=== PATIENT | male | born 1980 | race Caucasian/White ===

== ENCOUNTER 2017-04-13 14:54 | Emergency (ER) | payer OTHER ==
[2017-04-13] MEDS ORDERED: OLANZapine ODT 5 MG TABLET TL ONE ×2 (15:20→15:23)
--- NOTE | 2017-04-13 15:23 | ED Physician Documentation ---
PD HPI MHE - Stated complaint Stated Complaint: MHE - Chief complaint Chief Complaint: MHE - History obtained from History obtained from: Patient - History of Present Illness Primary symptom: Other (He's been using multiple substances, most recently meth amphetamines up until a couple of days ago and has persistent paranoia and delusions without hallucination or suicidal ideation and request inpatient detox and medications to help with his symptoms and anxiety.) Review of Systems Ten Systems: 10 systems reviewed and negative Constitutional: denies: Fever, Chills Ears: denies: Loss of hearing, Ear pain Nose: denies: Rhinorrhea / runny nose, Congestion, Epistaxis GI: denies: Vomiting, Diarrhea PD PAST MEDICAL HISTORY - Past Medical History Past Medical History: Yes Psych: Anxiety Other Past Medical History: Drug Rehab for Spice - Past Surgical History Past Surgical History: Yes Ortho: Carpal Tunnel surgery, Spine surgery, Other - Present Medications Home Medications: Ambulatory Orders Medication Instructions Recorded Confirmed ALPRAZolam [Xanax] 0.25 mg PO Q6H PRN #10 tablet 01/01/16 OLANZapine ODT [Zyprexa Odt] 5 mg TL BID #4 tablet 04/13/17 - Allergies Allergies/Adverse Reactions: Allergies Allergy/AdvReac Type Severity Reaction Status Date / Time No Known Drug Allergies Allergy Verified 08/20/13 10:19 - Social History Does the pt smoke?: No Smoking Status: Never smoker Does the pt drink ETOH?: No Does the pt have substance abuse?: Yes Substance Use and Type: Meth, Prescription Pills, Other - Family History Family history: reports: Non contributory - Immunizations Immunizations are current?: Yes - POLST Patient has POLST: No PD ED PE NORMAL - Vitals Vital signs reviewed: Yes - General General: Alert and oriented X 3, Other (visibly anxious) - HEENT HEENT: PERRL, EOMI - Neck Neck: Supple, no meningeal sign, No bony TTP - Cardiac Cardiac: RRR, No murmur - Respiratory Respiratory: No respiratory distress, Clear bilaterally - Abdomen Abdomen: Soft, Non tender - Derm Derm: Normal color, Warm and dry - Extremities Extremities: No edema, No calf tenderness / cord - Neuro Neuro: Alert and oriented X 3, No motor deficit, No sensory deficit, Normal speech Results - Vitals Vitals: Vital Signs - 24 hr 04/13/17 04/13/17 14:59 15:31 Temperature 36.4 C L Heart Rate 74 74 Respiratory 14 19 Rate Blood Pressure 118/73 112/55 L O2 Saturation 100 99 Oxygen O2 Source Room air - Labs Labs: Laboratory Tests 04/13/17 04/13/17 04/13/17 15:40 15:42 15:42 WBC 9.3 RBC 4.81 Hgb 13.3 L Hct 40.3 L MCV 83.8 MCH 27.7 MCHC 33.0 RDW 13.0 Plt Count 295 MPV 7.1 L Neut # 6.7 H Lymph # 1.9 [place] # 0.4 Eos # 0.2 Baso # 0.1 Absolute Nucleated RBC 0.00 Nucleated RBCs 0.0 Sodium 140 Potassium 3.8 Chloride 105 Carbon Dioxide 27 Anion Gap 8.0 BUN 13 Creatinine 0.9 Estimated GFR (MDRD) 94 Glucose 111 H Calcium 9.5 Total Bilirubin 0.4 AST 23 ALT 42 Alkaline Phosphatase 60 Total Creatine Kinase 147 Total Protein 7.2 Albumin 3.8 Globulin 3.4 Albumin/Globulin Ratio 1.1 Lipase 21 L Urine Color YELLOW Urine Clarity CLEAR Urine pH 6.0 Ur Specific [place] 1.025 Urine Protein NEGATIVE Urine Glucose (UA) NEGATIVE Urine Ketones NEGATIVE Urine Occult Blood TRACE-LYSE Urine Nitrite NEGATIVE Urine Bilirubin NEGATIVE Urine Urobilinogen 0.2 (NORMAL) Ur Leukocyte Esterase NEGATIVE Ur Microscopic Review NOT INDICATED Urine Culture Comments NOT INDICATED Urine Opiates Screen NEGATIVE Ur Oxycodone Screen NEGATIVE Urine Methadone Screen NEGATIVE Ur Propoxyphene Screen NEGATIVE Ur Barbiturates Screen NEGATIVE Ur Tricyclics Screen NEGATIVE Ur Phencyclidine Scrn NEGATIVE Ur Amphetamine Screen POSITIVE H U Methamphetamines Scrn POSITIVE H U Benzodiazepines Scrn POSITIVE H Urine Cocaine Screen NEGATIVE U Cannabinoids Screen POSITIVE H Ethyl Alcohol < 5.0 PD MEDICAL DECISION MAKING - ED course ED course: 36-year-old gentleman with methamphetamine use presents with delusions and paranoia. Social work was not available to see him and it was offered to him that he could stay in the emergency department to tomorrow versus going home and calling in the morning and he opted for the latter. He did feel better after oral Zyprexa. Departure - Departure Disposition: 01 Home, Self Care Clinical Impression: Methamphetamine abuse, Paranoia Condition: Good Record reviewed to determine appropriate education?: Yes Instructions: ED Drug Abuse General Prescriptions: OLANZapine ODT [Zyprexa Odt] 5 mg TL BID #4 tablet Comments: Call a group social worker tomorrow at [phone] after 8 a.m. or return at that time.
[2017-04-13 15:50] LABS: BASOPHILS # (AUTO) 0.1 10^3/uL (0.0-0.1); BASOPHILS % (AUTO) 0.6 %; EOSINOPHILS # (AUTO) 0.2 10^3/uL (0.0-0.7); EOSINOPHILS % (AUTO) 1.7 %; HCT - HEMATOCRIT 40.3 % (42.0-52.0); HGB - HEMOGLOBIN 13.3 g/dL (14.0-18.0); LYMPHOCYTES # (AUTO) 1.9 10^3/uL (1.5-3.5); LYMPHOCYTES % (AUTO) 20.8 %; MEAN CORPUSCULAR HEMOGLOBIN 27.7 pg (27.0-31.0); MEAN CORPUSCULAR VOLUME 83.8 fL (80.0-94.0); MEAN PLATELET VOLUME 7.1 fL (7.4-11.4); MONOCYTES # (AUTO) 0.4 10^3/uL (0.0-1.0); MONOCYTES % (AUTO) 4.3 %; NEUTROPHILS # (AUTO) 6.7 10^3/uL (1.5-6.6); NEUTROPHILS % (AUTO) 72.6 %; RED BLOOD COUNT 4.81 10^6/uL (4.70-6.10); UNCORRECTED WHITE BLOOD COUNT 9.3 x10^3/uL; WHITE BLOOD COUNT 9.3 x10^3/uL (4.8-10.8)
[2017-04-13 15:51] LABS: BILIRUBIN,URINE NEGATIVE (NEGATIVE); UA CHARGE (STRIP ONLY) YES; UR CULTURE IF IND NOT INDICATED
[2017-04-13 16:07] LABS: ALBUMIN/GLOBULIN RATIO 1.1 (1.0-2.2); BILIRUBIN,TOTAL 0.4 mg/dL (0.2-1.0); BUN - BLOOD UREA NITROGEN 13 mg/dL (6-20); CALCIUM 9.5 mg/dL (8.5-10.3); CARBON DIOXIDE - CO2 27 mmol/L (21-32); CHLORIDE 105 mmol/L (101-111); CREATININE 0.9 mg/dL (0.6-1.2); GFR - MDRD 94 (>89); GLUCOSE 111 mg/dL (70-100); LIPASE 21 U/L (22-51); POTASSIUM 3.8 mmol/L (3.5-5.0); SODIUM 140 mmol/L (135-145); TOTAL PROTEIN 7.2 g/dL (6.7-8.2)
[2017-04-13 17:41] VITALS: BP 140/69
== END 2017-04-13 17:36 | disposition home or self-care (01) ==
LOC: ED 14:54
DX: F15.10 Other stimulant abuse, uncomplicated (principal); F22 Delusional disorders
CPT/HCPCS: 36415; 80053; 80306; 80320; 81003; 82550; 83690; 85025; 99283; 99284; A9270; 81001; 87086

== ENCOUNTER 2017-04-14 09:42 | Emergency (ER) | payer OTHER ==
--- NOTE | 2017-04-14 14:18 | ED Physician Documentation ---
PD HPI MHE - Stated complaint Stated Complaint: MHE - Chief complaint Chief Complaint: MHE - History obtained from History obtained from: Patient - History of Present Illness Primary symptom: Psychosis Contributing factors: Substance abuse - drugs Recently seen: Emergency Dept (last night) - Additional information Additional information: The patient is a 36-year-old male with history of methamphetamine abuse as well as prescription Adderall, who presents for voluntary treatment. He was seen here last night and because there was no executive secretary social welfare available at that time he chose to go home and then come back today when a executive secretary social welfare was available to help arrange for voluntary treatment. While here last night he was given Zyprexa, which reportedly helped with his symptoms. He last used methamphetamine 2 days ago. He reports vague delusions, describing seeing things that aren't real, and "stuff that doesn't make sense." He feels like people are constantly following him. His symptoms have been waxing and waning for the past month, but have become worse during the past week. He denies history of similar symptoms previously. Review of Systems Constitutional: denies: Fever Ears: denies: Tinnitus/ringing Nose: denies: Congestion Throat: denies: Sore throat Cardiac: denies: Chest pain / pressure Respiratory: denies: Dyspnea, Cough GI: denies: Abdominal Pain, Nausea, Vomiting : denies: Dysuria Skin: denies: Rash Musculoskeletal: denies: Back pain Neurologic: denies: Headache Psychiatric: reports: Delusions, Anxiety. denies: Suicidal, Homicidal PD PAST MEDICAL HISTORY - Past Medical History Cardiovascular: None Respiratory: None Neuro: None Endocrine/Autoimmune: None Psych: Anxiety - Past Surgical History Past Surgical History: Yes Ortho: Carpal Tunnel surgery, Spine surgery, Other - Present Medications Home Medications: Ambulatory Orders Medication Instructions Recorded Confirmed ALPRAZolam [Xanax] 0.25 mg PO Q6H PRN #10 tablet 01/01/16 OLANZapine ODT [Zyprexa Odt] 5 mg TL BID #4 tablet 04/13/17 Lorazepam 0.5 mg PO Q6HR PRN #20 tablet 04/14/17 - Allergies Allergies/Adverse Reactions: Allergies Allergy/AdvReac Type Severity Reaction Status Date / Time No Known Drug Allergies Allergy Verified 08/20/13 10:19 - Living Situation Living Situation: reports: With family - Social History Does the pt smoke?: No Smoking Status: Never smoker Does the pt drink ETOH?: No Does the pt have substance abuse?: Yes Substance Use and Type: Meth - Immunizations Immunizations are current?: Yes - POLST Patient has POLST: No PD ED PE NORMAL - Vitals Vital signs reviewed: Yes (normal) - General General: Alert and oriented X 3, Well developed/nourished, Other (moderately anxious) - HEENT HEENT: Atraumatic, EOMI, Pharynx benign - Neck Neck: No adenopathy, No JVD - Cardiac Cardiac: RRR, No murmur - Respiratory Respiratory: No respiratory distress, Clear bilaterally - Abdomen Abdomen: Soft, Non tender - Derm Derm: No rash - Extremities Extremities: No deformity, No tenderness to palpate - Neuro Neuro: Alert and oriented X 3, No motor deficit, Normal speech PD ED PE EXPANDED - Psych Psych: Anxious. No: Suicidal, Homicidal Results - Vitals Vitals: Vital Signs - 24 hr 04/14/17 14:26 Temperature 36.2 C L Heart Rate 71 Respiratory 18 Rate Blood Pressure 110/68 O2 Saturation 100 Oxygen O2 Source Room air - Labs Labs: Laboratory Tests 04/14/17 04/14/17 09:52 10:40 Urine Opiates Screen NEGATIVE Ur Oxycodone Screen NEGATIVE Urine Methadone Screen NEGATIVE Ur Propoxyphene Screen NEGATIVE Ur Barbiturates Screen NEGATIVE Ur Tricyclics Screen NEGATIVE Ur Phencyclidine Scrn NEGATIVE Ur Amphetamine Screen POSITIVE H U Methamphetamines Scrn POSITIVE H U Benzodiazepines Scrn POSITIVE H Urine Cocaine Screen NEGATIVE U Cannabinoids Screen POSITIVE H Ethyl Alcohol < 5.0 PD MEDICAL DECISION MAKING - ED course Complexity details: reviewed old records, reviewed results, re-evaluated patient , considered differential, d/w patient, d/w gis consultant ED course: The patient's presentation is significant for anxiety and vague psychosis related to methamphetamine abuse and subsequent recent discontinuation. He was evaluated by the dental assistant medical assistant who was able to arrange for voluntary treatment at respite bed in [place]. He is being discharged with prescription for lorazepam, which will be filled when he arrives at the respite home. I discussed with him potentially worrisome signs or symptoms that should prompt reevaluation in the emergency department. Departure - Departure Disposition: 01 Home, Self Care Clinical Impression: Methamphetamine abuse, Anxiety, Paranoia Condition: Stable Instructions: ED Stress React Prescriptions: Lorazepam 0.5 mg PO Q6HR PRN #20 tablet PRN Reason: Anxiety Comments: Refrain from methamphetamine or other drugs. You can use lorazepam as prescribed if needed for anxiety. Followup with your primary physician or counselor within one week. Call to schedule an appointment. Go directly to the respite house as arranged by dental assistant medical assistant. Return to the emergency department if feeling increasingly anxious out of control, or otherwise worsening symptoms. Discharge Date/Time: 04/14/17 14:26
[2017-04-14 14:26] VITALS: BP 110/68
== END 2017-04-14 14:26 | disposition home or self-care (01) ==
LOC: ED 09:42
DX: F15.10 Other stimulant abuse, uncomplicated (principal); F41.9 Anxiety disorder, unspecified; F22 Delusional disorders
CPT/HCPCS: 36415; 80306; 80320; 99283

== ENCOUNTER 2018-10-26 10:04 | Emergency (ER) | payer OTHER ==
[2018-10-26 10:25] VITALS: BP 129/82
--- NOTE | 2018-10-26 11:00 | ED Physician Documentation ---
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 [place] ship [place]. He has a tooth with a broken out filling and he has put some temporary filling material on it without improvement. He is having sensitivity to the tooth into his whole face inflammation and swollen lymph node which is tender. He was seen in the clinic and placed on penicillin. He is unable to sleep and not able to get in to see the dentist on the . Review of Systems Constitutional: denies: Fever Eyes: denies: Decreased vision Ears: denies: Ear pain Nose: denies: Rhinorrhea / runny nose, Congestion Throat: reports: Dental pain / toothache. denies: Sore throat Respiratory: denies: Cough GI: denies: Vomiting PD PAST MEDICAL HISTORY - Past Medical History Cardiovascular: None Respiratory: None Endocrine/Autoimmune: None Psych: Anxiety - Past Surgical History Past Surgical History: Yes Ortho: Carpal Tunnel surgery, Spine surgery, Other - Present Medications Home Medications: Ambulatory Orders Medication Instructions Recorded Confirmed ALPRAZolam [Xanax] 0.25 mg PO Q6H PRN #10 tablet 01/01/16 OLANZapine ODT [Zyprexa Odt] 5 mg TL BID #4 tablet 04/13/17 LORazepam [Lorazepam] 0.5 mg PO Q6HR PRN #20 tablet 04/14/17 Amoxicillin 875 mg PO BID #20 tablet 10/26/18 Hydrocodone/Acetaminophen 1 - 2 each PO Q6H PRN #14 tablet 10/26/18 [Hydrocodon-Acetaminophen 5-325] - Allergies Allergies/Adverse Reactions: Allergies Allergy/AdvReac Type Severity Reaction Status Date / Time No Known Drug Allergies Allergy Verified 10/26/18 10:16 - Social History Does the pt smoke?: No Smoking Status: Never smoker Does the pt drink ETOH?: No Does the pt have substance abuse?: Yes - Immunizations Immunizations are current?: Yes - POLST Patient has POLST: No PD ED PE NORMAL - Vitals Vital signs reviewed: Yes (hypertensive ) - General General: Alert and oriented X 3, No acute distress, Well developed/nourished - HEENT HEENT: Atraumatic, PERRL, EOMI, Pharynx benign, Other (both TM's are inflammed the left is worse than the right There is a tooth with a broken out filling on the lower left jaw and this is without swelling to the surrounding area. There is a tender swollen lymph node just below the jaw. ) - Neck Neck: Supple, no meningeal sign, No bony TTP - Respiratory Respiratory: No respiratory distress - Derm Derm: Normal color, Warm and dry, No rash - Extremities Extremities: No deformity, No edema - Neuro Neuro: Alert and oriented X 3, canteen operator 2-12 intact, No motor deficit, No sensory deficit, Normal speech Eye Opening: Spontaneous Motor: Obeys Commands Verbal: Oriented GCS Score: 15 - Psych Psych: Normal mood, Normal affect Results - Vitals Vitals: Vital Signs - 24 hr 10/26/18 10:10 Temperature 36.2 C L Heart Rate 68 Respiratory 18 Rate Blood Pressure 129/82 H O2 Saturation 98 Oxygen O2 Source Room air PD MEDICAL DECISION MAKING - ED course Complexity details: considered differential, d/w patient ED course: 37-year-old male with a bad tooth has been unable to sleep he has been on some penicillin states that this is been upsetting his stomach. He is switched to amoxicillin we will place him on some Vicodin as well. Departure - Departure Disposition: 01 Home, Self Care Clinical Impression: Pain, dental Condition: Stable Instructions: ED Tooth Pain Follow-Up: Your, doctor [Other] Prescriptions: Amoxicillin 875 mg PO BID #20 tablet Hydrocodone/Acetaminophen [Hydrocodon-Acetaminophen 5-325] 1 - 2 each PO Q6H PRN #14 tablet PRN Reason: pain
== END 2018-10-26 11:12 | disposition home or self-care (01) ==
LOC: ED 10:04
DX: K08.89 Other specified disorders of teeth and supporting structures (principal)
CPT/HCPCS: 99283

== ENCOUNTER 2020-05-29 12:16 | Emergency (ER) | payer OTHER ==
[2020-05-29 12:27] VITALS: BP 143/69
--- NOTE | 2020-05-29 12:49 | ED Physician Documentation ---
PD HPI HEENT - Stated complaint Stated Complaint: R EAR PX - Chief complaint Chief Complaint: Heent - History obtained from History obtained from: Patient - History of Present Illness Timing - onset: How many weeks ago (4) Timing - details: Gradual onset Improves: Medication Worsens: Swalllowing, Position Associated symptoms: No: Fever, Congestion, Rhinorrhea, Trismus, Facial swelling Similar symptoms before: Has not had sx before Recently seen: Emergency Dept - Additional information Additional information: 39-year-old male presents the emergency department for evaluation of persistent right ear pain. He was seen in this ED approximately 4 days ago for right ear pain and diagnosed with right acute otitis media. He was started on a course of cephalexin. However since being seen patient reports that the pain has worsened. He has worsening pain when swallows and especially when laying flat. He has had no fevers, denies any sinus congestion or pressure. He has had no ear drainage. Patient feels that the pain radiates to his upper teeth. He was seen by a dentist 2 weeks ago and has teeth that are in otherwise good repair He denies any history of recurrent ear infections. Did not require tympanostomy tubes as a child. He denies any recent travel to [facility] or swimming. Review of Systems Constitutional: denies: Fever, Chills Ears: reports: Ear pain. denies: Drainage/discharge, Tinnitus/ringing, Foreign body Nose: denies: Rhinorrhea / runny nose, Congestion Throat: reports: Dental pain / toothache. denies: Oral lesions / sores, Sore throat, Swollen tonsils, Reviewed and negative Cardiac: denies: Chest pain / pressure, Palpitations Respiratory: denies: Dyspnea GI: denies: Abdominal Pain, Abdominal Swelling, Nausea, Vomiting Skin: denies: Rash PD PAST MEDICAL HISTORY - Past Medical History Cardiovascular: None Respiratory: None Endocrine/Autoimmune: None Psych: Anxiety - Past Surgical History Past Surgical History: Yes Ortho: Carpal Tunnel surgery, Spine surgery, Other - Present Medications Home Medications: Ambulatory Orders Medication Instructions Recorded Confirmed Amoxicillin 875 mg PO BID #20 tablet 10/26/18 Cephalexin [Keflex] 500 mg PO TID #21 capsule 05/24/20 Amox/Clav 875/125 [Augmentin] 1 each PO Q12H #20 tablet 05/29/20 - Allergies Allergies/Adverse Reactions: Allergies Allergy/AdvReac Type Severity Reaction Status Date / Time No Known Drug Allergies Allergy Verified 05/29/20 12:27 - Social History Does the pt smoke?: No Smoking Status: Never smoker Does the pt drink ETOH?: No Does the pt have substance abuse?: Yes - Immunizations Immunizations are current?: Yes - POLST Patient has POLST: No PD ED PE NORMAL - General General: Alert and oriented X 3, No acute distress, Well developed/nourished - HEENT HEENT: PERRL, EOMI, Other (right eac erythematous withotu swelling or drainage. Right TM erythematous with milky effusion seen beyond the TM. DIVINA intact. Normal opening closing of the jaw. All teeth appear to be in good repain. No gum line swelling or fluctuance. no mastoid swellign or tenderness.) - Neck Neck: Supple, no meningeal sign. No: No adenopathy - Cardiac Cardiac: RRR, No murmur - Respiratory Respiratory: No respiratory distress - Abdomen Abdomen: Normal bowel sounds, Soft Results - Vitals Vitals: Vital Signs - 24 hr 05/29/20 12:24 Temperature 36.8 C Heart Rate 68 Respiratory 18 Rate Blood Pressure 143/69 H O2 Saturation 99 Oxygen O2 Source Room air PD MEDICAL DECISION MAKING - ED course Complexity details: reviewed results, d/w patient ED course: 39-year-old male presents to the emergency department with persistent right ear pain. Seen in this ED 4 days ago found to have right AOM. He was started on cephalexin but does not feel that the symptoms are improved pain is persistent when he swallows and especially when he lays supine in bed at night. - On exam he has an erythematous TM. There is no TM rupture. It appears that he has a persistent infection I will change his antibiotics to Augmentin. - His exam is not consistent with malignant otitis externa. His teeth do appear to be in good repair and no pain was elicited with palpation of the teeth themselves. He has no trismus. He has normal phonation and full range of motion of the neck. Exam is also NOT consistent with acute masoid process with lack of mastoid tenderness, swelling or erythema Departure - Departure Disposition: 01 Home, Self Care Clinical Impression: Otitis media Qualifiers: Otitis media type: suppurative Chronicity: acute Laterality: bilateral Recurrence: not specified as recurrent Spontaneous tympanic membrane rupture: without spontaneous rupture Qualified Code(s): H66.003 - Acute suppurative otitis media without spontaneous rupture of ear drum, bilateral Instructions: ED Otitis Media Serous Adult Prescriptions: Amox/Clav 875/125 [Augmentin] 1 each PO Q12H #20 tablet Comments: Phani it looks like you continue to have some fluid behind your right eardrum. Let us have you stop the Keflex and begin taking Augmentin as prescribed. I would expect improved symptoms within 24 to 48 hours. If your symptoms are not improving you may need to be seen by an ear nose throat doctor as recurrent infections in adults are relatively uncommon Return here if you have ear swelling, any fevers, any fainting episodes or drainage from the ear
== END 2020-05-29 13:00 | disposition home or self-care (01) ==
LOC: ED 12:16
DX: H66.003 Acute suppurative otitis media without spontaneous rupture of ear drum, bilateral (principal)
CPT/HCPCS: 99282; 99283

== ENCOUNTER 2021-01-25 16:53 | Outpatient (CLI) | payer OTHER | END 2021-01-25 16:54 | disposition home or self-care (01) | LOC: COV 16:53 | PROVIDERS: ATTEND Surgery | DX: Z01.812 Encounter for preprocedural laboratory examination (principal); D17.0 Benign lipomatous neoplasm of skin and subcutaneous tissue of head, face and neck; Z20.822 Contact with and (suspected) exposure to COVID-19 ==

== ENCOUNTER 2021-01-29 09:09 | Day surgery (SDC) | payer OTHER ==
[2021-01-29] MEDS ORDERED: LIDOCAINE 2%-EPI 1:100000 20 ML MDV ONE (09:50)
[2021-01-29] MEDS ORDERED: BUPIVACAINE 0.25% PF 30 ML VIAL ONE (09:50)
[2021-01-29] MEDS ORDERED: LACTATED RINGERS 1,000 ML IV ONE (10:02)
[2021-01-29] MEDS ORDERED: MIDAZOLAM 2 MG/2 ML VIAL ONE (10:05)
[2021-01-29] MEDS ORDERED: ROCURONIUM 50 MG/5 ML VIAL ONE (10:05)
[2021-01-29] MEDS ORDERED: fentaNYL 100 MCG/2 ML VIAL ONE (10:05)
[2021-01-29] MEDS ORDERED: LIDOCAINE-MPF 2% 5 ML VIAL ONE (10:05)
[2021-01-29] MEDS ORDERED: PROPOFOL 200 MG/20 ML VIAL IVP ONE (10:05)
[2021-01-29] MEDS ORDERED: BUPIVACAINE 0.25% PF 30 ML VIAL SUBQ ONE ×2 (10:12)
[2021-01-29] MEDS ORDERED: LIDOCAINE 2%-EPI 1:100000 20 ML MDV SUBQ ONE ×2 (10:13)
--- NOTE | 2021-01-29 10:18 | ANESTHESIA ---
Pre-Anesthesia VS, & Labs - Diagnosis lipoma right neck - Procedure excision lipoma right neck Vital Signs: Temp Pulse Resp BP Pulse Ox 36.4 C L 53 L 18 154/81 H 99 01/29/21 10:03 01/29/21 10:03 01/29/21 10:03 01/29/21 10:03 01/29/21 10:03 Height: 6 ft 2 in Weight (kg): 129.9 kg Body Mass Index: 36.7 BMI Classification: Obese - NPO >8 hours Home Medications and Allergies Home Medications: Ambulatory Orders Dextroamphetamine/Amphetamine [Adderall 20 mg Tablet] 30 mg PO BID PRN 01/22/21 Dextroamphetamine/Amphetamine [Adderall 20 mg Tablet] 30 mg PO BID PRN 01/22/21 Allergies/Adverse Reactions: Allergies Allergy/AdvReac Type Severity Reaction Status Date / Time avocado Allergy throat Verified 01/22/21 10:29 itching kiwi Allergy throat Verified 01/22/21 10:29 itching Anes History & Medical History - Anesthetic History Anesthesia Complications: reports: No previous complications - Medical History Cardiovascular: reports: None Pulmonary: reports: None Gastrointestinal: reports: None Urinary: reports: None Musculoskeletal: reports: None Endocrine/Autoimmune: reports: None Skin: reports: None Smoking Status: Never smoker History of Cancer?: No - Surgical History Orthopedic: reports: Carpal Tunnel surgery, Spine surgery, Other Exam General: Alert Mouth Opening: Greater than 4 Fingerbreadths Neck Mobility: Limited Mallampati classification: I Thyromental Distance: greater than 6 cm Respiratory: Lungs clear Cardiovascular: Regular rate Plan Anesthesia Type: General Consent for Procedure(s) Verified and Reviewed: Yes Code Status: Attempt Resuscitation ASA classification: 2-Mild systemic disease Is this case an emergency?: No
[2021-01-29] MEDS ORDERED: ONDANSETRON 4 MG/2 ML VIAL IVP PRN (10:23)
[2021-01-29] MEDS ORDERED: MORPHINE 2 MG/ML CARPUJECT IVP PRN (10:23)
[2021-01-29] MEDS ORDERED: METOCLOPRAMIDE 10 MG/2 ML VIAL IVP PRN (10:23)
[2021-01-29] MEDS ORDERED: ePHEDrine 50 MG/ML VIAL IVP PRN (10:23)
[2021-01-29] MEDS ORDERED: ATROPINE ABBOJECT 1 MG/10 ML SYRINGE IVP PRN (10:23)
[2021-01-29] MEDS ORDERED: fentaNYL 100 MCG/2 ML VIAL IVP PRN (10:23)
[2021-01-29] MEDS ORDERED: NALOXONE 0.4 MG/ML VIAL IVP PRN (10:23)
[2021-01-29] MEDS ORDERED: HYDROmorphone 0.5 MG/0.5 ML SYRINGE IVP PRN (10:23)
[2021-01-29] MEDS ORDERED: DEXAMETHASONE 4 MG/ML VIAL ONE (10:58)
[2021-01-29] MEDS ORDERED: ONDANSETRON 4 MG/2 ML VIAL ONE (10:58)
[2021-01-29] MEDS ORDERED: KETOROLAC 30 MG/ML VIAL ONE (10:58)
[2021-01-29] MEDS ORDERED: LACTATED RINGERS 1,000 ML IV SCH (11:00)
[2021-01-29] MEDS ORDERED: SUGAMMADEX 200 MG/2 ML VIAL IVP ONE (11:18)
--- NOTE | 2021-01-29 11:27 | OPERATIVE REPORT ---
Operative Report - General Procedure Date: 01/29/21 Planned Procedure: excision 6 cm right neck lipoma Pre-Op Diagnosis: neck lipoma Procedure Performed: excision 6 cm right neck lipoma Post Op Diagnosis: same - Procedure Note Primary Surgeon: luanne coughlin Anesthesia Technique: General ET tube, Local Pathology: benign, not sent Estimated Blood Loss (mL): 1 Drain/Tube Type: Other (none) Complications: none
[2021-01-29] MEDS ORDERED: LACTATED RINGERS 200 ML IV ONE (11:28)
[2021-01-29] MEDS ORDERED: oxyCODONE 5 MG TABLET PO PRN (11:28)
--- NOTE | 2021-01-29 12:35 | ANESTHESIA POST OP EVALUATION ---
Anesthesia Post Eval - Post Anesthesia Eval Vitals: Last Vital Signs Temp 36.2 C L 01/29/21 12:20 Pulse 44 L 01/29/21 12:20 Resp 20 01/29/21 12:20 BP 136/76 H 01/29/21 12:20 Pulse Ox 96 01/29/21 12:20 CV Function Including HR & BP: Stable Pain Control: Satisfactory Nausea & Vomiting: Negative Mental Status: Baseline Respiratory Status: Airway Patent Hydration Status: Satisfactory Anesthesia Complications: None
[2021-01-29 12:36] VITALS: BP 130/71
--- NOTE | 2021-01-29 13:14 | OPERATIVE REPORT ---
DATE OF SERVICE: 01/29/2021 Physician: Elpidio Rogers MD PREOPERATIVE DIAGNOSIS: A 6 cm right neck lipoma. POSTOPERATIVE DIAGNOSIS: A 6 cm right neck lipoma. PROCEDURE 1. Excision of right neck lipoma. 2. Intermediate repair 5 cm neck incision. SURGEON: Elpidio Rogers MD WAFER ABRADING MACHINE TENDER: None. ANESTHESIA 1. General endotracheal anesthesia. 2. Local anesthesia with Marcaine and lidocaine. COMPLICATIONS: None. ESTIMATED BLOOD LOSS: None. DRAINS: None. SPECIMEN: Clinically benign, not sent for pathology. INDICATIONS FOR PROCEDURE: The patient is a 40-year-old with a slowly growing right lateral neck mass, consistent with lipoma. It has become sizable and now creates pain and tenderness. He presents for excision. Risks discussed, alternatives discussed, all questions answered, and consent obtained. DETAILS OF PROCEDURE: The patient was properly identified, brought to the operating room, and placed in supine position. General endotracheal anesthesia was induced. He was then repositioned [id number] slightly and carefully padded. He was prepped and draped in a sterile fashion. Antibiotics were not indicated and given. Local anesthetic was given. The patient had a prior attempted excision or drainage in the office. An elliptical incision was made in the direction of Nicolasa's lines, cutting out the prior scar. Dissection proceeded with cutting current. The lipoma was removed in its entirety with gentle retraction and cutting current cautery. Hemostasis was ensured. The lipoma was superficial to the platysma. Subcutaneous tissue was reapproximated with interrupted 3-0 Vicryl. Buried interrupted subdermal 3-0 Vicryl sutures were then placed. The skin was closed with a running 4-0 Monocryl subcuticular suture. Steri-Strips and dressing were applied. He tolerated the procedure very well, was awakened and brought to recovery in good condition. TD: 01/29/2021 13:12 [facility]
== END 2021-01-29 09:10 | disposition home or self-care (01) ==
LOC: SDS 09:09
PROVIDERS: ATTEND Surgery
DX: D17.0 Benign lipomatous neoplasm of skin and subcutaneous tissue of head, face and neck (principal); E66.9 Obesity, unspecified; Z68.36 Body mass index [BMI] 36.0-36.9, adult
CPT/HCPCS: 11426; 12042; J7120

== ENCOUNTER 2022-05-18 12:46 | Emergency (ER) | payer OTHER ==
--- NOTE | 2022-05-18 13:34 | ED Physician Documentation ---
PD HPI BACK PAIN - Stated complaint Stated Complaint: BACK PX - Chief complaint Chief Complaint: Back Pain - History obtained from History obtained from: Patient - History of Present Illness Timing - onset: How many days ago (several) Timing - duration: Days Timing - details: Abrupt onset, Still present Location: Lower Quality: Pain, Spasm Associated symptoms: No: Fever, Weakness, Numbness, Incontinent of urine Improves with: Rest. No: Meds Worsened by: Movement, Lifting, Twisting Contributing factors: Lifting (The patient has to lift his brother who is injured and has leg weakness and improving slowly. The patient has to lift his brother in and out of vehicles. Onset of back pain when doing this a few days ago. Pain persists.) Similar symptoms before: Has not had sx before Recently seen: Not recently seen Review of Systems Constitutional: denies: Fever, Chills GI: denies: Abdominal Pain, Nausea, Vomiting, Diarrhea : denies: Dysuria, Frequency Skin: denies: Rash, Lesions Neurologic: denies: Focal weakness, Numbness PD PAST MEDICAL HISTORY - Past Medical History Cardiovascular: None Respiratory: None Endocrine/Autoimmune: None GI: None : None HEENT: None Psych: ADD/ADHD Musculoskeletal: None Derm: None - Past Surgical History Past Surgical History: Yes Ortho: Carpal Tunnel surgery, Spine surgery, Other - Present Medications Home Medications: Ambulatory Orders Medication Instructions Recorded Confirmed Dextroamphetamine/Amphetamine 30 mg PO BID PRN 01/22/21 01/22/21 [Adderall 20 mg Tablet] oxyCODONE/ACET 5/325 [Percocet 5 1 each PO Q6H PRN #12 tablet 01/29/21 mg/325 mg] Naproxen 500 mg PO BID #20 tab.sr 05/18/22 oxyCODONE [Roxicodone] 5 mg PO Q6H PRN #18 tablet 05/18/22 tiZANidine [Zanaflex] 4 mg PO Q8H PRN #25 tablet 05/18/22 - Allergies Allergies/Adverse Reactions: Allergies Allergy/AdvReac Type Severity Reaction Status Date / Time avocado Allergy throat Verified 01/22/21 10:29 itching kiwi Allergy throat Verified 01/22/21 10:29 itching - Social History Does the pt smoke?: No Smoking Status: Never smoker Does the pt drink ETOH?: No Does the pt have substance abuse?: Yes - Immunizations Immunizations are current?: Yes - POLST Patient has POLST: No PD ED PE NORMAL - Vitals Vital signs reviewed: Yes - General General: Alert and oriented X 3, Well developed/nourished, Other (He appears uncomfortable with guarded range of motion for the low back.) - Abdomen Abdomen: Soft, Non tender - Rectal Rectal: Deferred - Back Back: No CVA TTP, No spinal TTP, Other (Tenderness in the right paralumbar muscle without focal trigger point per se. No vertebral tenderness. No rash no shoulders.) - Derm Derm: Normal color, Warm and dry, No rash - Neuro Neuro: Alert and oriented X 3, No motor deficit, No sensory deficit, Other (normal patellar reflexes) Results - Vitals Vitals: Vital Signs - 24 hr 05/18/22 05/18/22 13:00 15:23 Temperature 37.2 C 36.9 C Heart Rate 70 50 L Respiratory 19 18 Rate Blood Pressure 132/78 H 124/76 O2 Saturation 98 95 Oxygen O2 Source Room air PD MEDICAL DECISION MAKING - ED course Complexity details: considered differential (Back pain onset after lifting. No red flags on history or physical. Can treat as muscle/myofascial back pain.), d/w patient Departure - Departure Disposition: 01 Home, Self Care Clinical Impression: Low back strain Qualifiers: Encounter type: initial encounter Qualified Code(s): S39.012A - Strain of muscle, fascia and tendon of lower back, initial encounter Condition: Stable Record reviewed to determine appropriate education?: Yes Instructions: ED Sprain Strain Lumbar Follow-Up: Ronaldo Schmitt DO [Primary Care Provider] - Prescriptions: Naproxen 500 mg PO BID #20 tab.sr oxyCODONE [Roxicodone] 5 mg PO Q6H PRN #18 tablet PRN Reason: Pain tiZANidine [Zanaflex] 4 mg PO Q8H PRN #25 tablet PRN Reason: Spasms Comments: Heat massage gentle stretching overall good for her back muscles. Consider chiropractic or other treatments if you are so inclined. We would typically treat this with anti-inflammatories and muscle relaxants and pain medicines along with heat stretching and massage and see if this improves over the next week or so. No heavy lifting or such over the next several days to week. Recheck if not improved well over the next several days and resolved by a week or so. I transmitted your prescriptions to [facility] pharmacy. I am prescribing a short course of narcotic pain medication for you. These are potentially dangerous and addictive medications that should be used carefully. These medications may constipate you. Take an ehlw-iao-oqkubkk stool softener such as docusate twice daily with plenty of water while taking these medications. If you go 24 hours without a bowel movement, take iniy-iwb-jrfbklb MiraLAX, per package instructions. Do not drink or drive while taking these medications. If you received narcotic or sedating medications while in the emergency departm ent do not drive for 24 hours. Store this medication in a safe, secure place and out of reach of children. It is a violation of federal law to give or sell this medication to another person or to use in a manner other than prescribed. The ED will not refill narcotic prescriptions, including prescriptions lost or stolen. You can dispose of unwanted medications at the [facility] or at several pharmacies such as [facility] Discharge Date/Time: 05/18/22 15:23
[2022-05-18] MEDS ORDERED: methocarbamoL 500 MG TABLET PO STA (14:12)
[2022-05-18] MEDS ORDERED: KETOROLAC 30 MG/ML VIAL IM STA (14:12)
[2022-05-18] MEDS ORDERED: HYDROmorphone 1 MG/ML CARPUJECT IM STA (14:12)
[2022-05-18] MEDS ORDERED: oxyCODONE 5 MG TABLET PO STA (15:10)
[2022-05-18 15:24] VITALS: BP 124/76
== END 2022-05-18 15:23 | disposition home or self-care (01) ==
LOC: ED 12:46
DX: S39.012A Strain of muscle, fascia and tendon of lower back, initial encounter (principal); X50.0XXA Overexertion from strenuous movement or load, initial encounter; Y93.F2 Activity, caregiving, lifting; Y92.810 Car as the place of occurrence of the external cause
CPT/HCPCS: 96372; 99282; 99283; A9270; J1170

== ENCOUNTER 2024-03-21 19:12 | Emergency (ER) | payer OTHER ==
--- NOTE | 2024-03-21 21:02 | ED Physician Documentation ---
PD HPI HEENT - Stated complaint Stated Complaint: RT EAR PX,DIZZY - Chief complaint Chief Complaint: Heent - History obtained from History obtained from: Patient - Additional information Additional information: The patient comes to the emergency department chief complaint of low right ear pain, jaw pain, and right teeth hurting globally for the past several days. 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 He denies any distinct dental pain that started this fell off. His significant other states she thinks that he grinds his teeth at night sometimes when he is deeply asleep and can hear the noise a bit. The patient states that his ear has been popping. It also seems like it is just clogged up and now he has been having vertigo. States it just feels like the floor is moving under him sometimes. No focal neurologic deficits otherwise. No other complaints at this time. PD PAST MEDICAL HISTORY - Past Medical History Past Medical History: Yes Cardiovascular: None Respiratory: None Endocrine/Autoimmune: None GI: None : None HEENT: None Psych: ADD/ADHD Musculoskeletal: None Derm: None - Past Surgical History Past Surgical History: Yes Ortho: Carpal Tunnel surgery, Spine surgery, Other - Present Medications Home Medications: Ambulatory Orders Medication Instructions Recorded Confirmed Dextroamphetamine/Amphetamine 30 mg PO BID PRN 01/22/21 01/22/21 [Adderall 20 mg Tablet] oxyCODONE/ACET 5/325 [Percocet 5 1 each PO Q6H PRN #12 tablet 01/29/21 mg/325 mg] Naproxen 500 mg PO BID #20 tab.sr 05/18/22 oxyCODONE [Roxicodone] 5 mg PO Q6H PRN #18 tablet 05/18/22 tiZANidine [Zanaflex] 4 mg PO Q8H PRN #25 tablet 05/18/22 HYDROcod/ACETAM 5/325 [[place] 5/325] 1 - 2 tablet PO Q6H PRN #14 tablet 03/21/24 Meclizine HCl [Antivert] 50 mg PO Q6H PRN #20 tablet 03/21/24 predniSONE [Deltasone] 10 mg PO [id number] #42 tab 03/21/24 - Allergies Allergies/Adverse Reactions: Allergies Allergy/AdvReac Type Severity Reaction Status Date / Time avocado Allergy throat Verified 03/21/24 19:21 itching kiwi Allergy throat Verified 03/21/24 19:21 itching - Social History Does the pt smoke?: No Smoking Status: Never smoker Does the pt drink ETOH?: No Does the pt have substance abuse?: Yes - Immunizations Immunizations are current?: Yes - POLST Patient has POLST: No PD ED PE NORMAL - Vitals Vital signs reviewed: Yes - General General: Alert and oriented X 3, No acute distress, Well developed/nourished - HEENT HEENT: Atraumatic, PERRL, EOMI, Moist mucous membranes, Pharynx benign, Dentition benign (No gingival tenderness. No edema.), Other (Left TM normal. Right TM clear, but bulging. No erythema. No popping or clicking with TMJ movement on exam.) - Neck Neck: No adenopathy - Respiratory Respiratory: No respiratory distress - Derm Derm: Normal color, Warm and dry, No rash - Extremities Extremities: No deformity - Neuro Neuro: Alert and oriented X 3 - Psych Psych: Normal mood, Normal affect Results - Vitals Vitals: Vital Signs - 24 hr 03/21/24 19:19 Temperature 36.6 C Heart Rate 59 L Respiratory 16 Rate Blood Pressure 150/77 H O2 Saturation 98 Oxygen O2 Source Room air PD Medical Decision Making - ED course Complexity details: considered differential, d/w patient, d/w family ED course: The patient was treated symptomatically in the emergency department with prednisone, hydrocodone, and meclizine. He does appear to have some fluid behind his tympanic membrane which is causing increased pressure and is likely the source of the vertigo as well. It sounds like he may also have some TMJ pain, though this is not reproducible on exam. I have discussed with the patient that he may need to talk to his dentist about getting a bite guard if he is grinding regularly. We have discussed symptomatic management at home and the usual indications for return. Departure - Departure Disposition: 01 Home, Self Care Clinical Impression: Peripheral vertigo involving right ear Serous otitis media Qualifiers: Chronicity: acute Laterality: right Recurrence: non-recurrent Qualified Code(s): H65.01 - Acute serous otitis media, right ear TMJ arthralgia Qualifiers: Laterality: right Qualified Code(s): M26.621 - Arthralgia of right temporomandibular joint Condition: Stable Instructions: ED Otitis Media Serous Adult, ED TMJ Syndrome, TMJ Help Heal, ED BPV Vertigo Prescriptions: Meclizine HCl [Antivert] 50 mg PO Q6H PRN #20 tablet PRN Reason: Vertigo predniSONE [Deltasone] 10 mg PO [id number] #42 tab HYDROcod/ACETAM 5/325 [[place] 5/325] 1 - 2 tablet PO Q6H PRN #14 tablet PRN Reason: Pain Comments: You have some fluid behind your eardrum which is probably causing the pain, popping and vertigo. However, given the history of clenching your jaw and the pain is radiating into your teeth, it could also be that you at the same time have some strain to your temporomandibular joint, or jaw joint, which is causing pain in the area as well. You may take ibuprofen 600 mg every 6 hours and also get some fqus-kls-tqdxmja Sudafed to help clear up any clogging in your eustachian tube, the tube that connects your inner ear with the passages of your throat. Prescriptions for the vertigo and the pain, as well as a prescription for steroid, have been electronically transmitted to the [facility] pharmacy in [place]. The first 2 medications are to be taken as needed, but the steroid should be taken daily, as directed. Please follow-up with your primary doctor for further concerns. Please do not drive for the next 8 hours, as you have been given sedating medication here in the emergency department.
[2024-03-21] MEDS: HYDROcod/ACETAM 5/325 MG TABLET PO STA (21:17)
[2024-03-21] MEDS: predniSONE 20 MG TABLET PO STA (21:17)
[2024-03-21] MEDS: MECLIZINE 12.5 MG TABLET PO STA (21:17)
[2024-03-21 21:37] VITALS: BP 134/88; O2SAT 96
== END 2024-03-21 21:31 | disposition home or self-care (01) ==
LOC: ED 19:12
DX: H65.01 Acute serous otitis media, right ear (principal); M26.621 Arthralgia of right temporomandibular joint
CPT/HCPCS: 99283; A9270; J7512